=== PATIENT | female | born 1985 | race Two or more races ===

== ENCOUNTER 2022-06-08 11:00 | Inpatient (IN) | payer OTHER ==
[2022-06-08] MEDS ORDERED: SODIUM CHLORIDE 0.9% 500 ML INFUS.BAG IV ONE ×2 (13:37→21:29)
[2022-06-08] MEDS ORDERED: KETOROLAC TROMETHAMINE 30 MG/1 ML VIAL IVPUSH ONE ×2 (13:37→18:12)
[2022-06-08] MEDS ORDERED: KETOROLAC TROMETHAMINE 30 MG/1 ML VIAL ONE ×2 (13:40→18:14)
[2022-06-08 14:26] LABS: BASO % 0.4 % (0-2.0); EOS % 0.7 % (0-4.5); HEMATOCRIT 36.1 % (32.4-45.2); HEMOGLOBIN 11.4 GM/dL (10.7-15.3); LYMPH % 25.9 % (8-40); MCHC 31.7 g/dl (32.0-36.0); MEAN CELL VOLUME 72.4 fl (80-96); MEAN PLT VOLUME 9.7 fl (7.5-11.1); MONO % 7.9 % (3.8-10.2); NEUT % 65.1 % (42.8-82.8); PLATELET COUNT 187 10^3/uL (134-434); RBC 4.98 M/mm3 (3.60-5.2); RDW 15.9 % (11.6-15.6); WHITE BLOOD COUNT 8.2 K/mm3 (4.0-10.0)
[2022-06-08 14:30] LABS: EPI CELLS 9 /uL (0-25.1); HCG,QUALITATIVE URINE Negative; HYALINE CASTS 0 /uL (0-3.1); URINE APPEARANCE CLEAR; URINE BACTERIA 126 /uL (0-1359); URINE BILIRUBIN NEGATIVE (NEGATIVE); URINE COLOR YELLOW; URINE GLUCOSE (UA) NEGATIVE (NEGATIVE); URINE KETONE NEGATIVE (NEGATIVE); URINE LEUK ESTERASE NEGATIVE (NEGATIVE); URINE NITRITE NEGATIVE (NEGATIVE); URINE PROTEIN NEGATIVE (NEGATIVE); URINE RBC 8 /uL (0-23.9); URINE UROBILINOGEN 0.2 mg/dL (0.2-1.0); URINE WBC 4 /uL (0-25.8)
[2022-06-08 14:47] LABS: ALBUMIN 3.7 g/dl (3.4-5.0); BLOOD UREA NITROGEN 16.1 mg/dL (7-18); CALCIUM 9.3 mg/dL (8.5-10.1)
[2022-06-08 14:50] LABS: CREATININE 0.8 mg/dL (0.55-1.3)
[2022-06-08 14:52] LABS: BILIRUBIN,TOTAL 0.5 mg/dL (0.2-1); TOT PROT 7.1 g/dl (6.4-8.2)
[2022-06-08] MEDS ORDERED: ONDANSETRON 4 MG/2 ML VIAL IVPUSH ONE (21:28)
[2022-06-08] MEDS ORDERED: ONDANSETRON 4 MG/2 ML VIAL ONE (21:29)
[2022-06-08] MEDS ORDERED: morphine CARPU-JECT 4 MG/1 ML DISP.SYRIN IVPUSH ONE (23:00)
[2022-06-08] MEDS ORDERED: morphine SULFATE 4 MG/ML VIAL ONE (23:11)
[2022-06-09] MEDS ORDERED: PROCHLORPERAZINE INJECTION 10 MG/2 ML VIAL IVPB PRN (00:41)
[2022-06-09] MEDS ORDERED: SODIUM CHLORIDE 1,000 ML IV SCH ×2 (00:45→06:15)
[2022-06-09] MEDS ORDERED: ACETAMINOPHEN INJECTION 100 ML IVPB ONE (02:47)
[2022-06-09] MEDS: POLYETHYLENE GLYCOL (HEALTHYLAX) 3350 17 GM PACKET PO SCH ×3 (05:11→21:17)
[2022-06-09] MEDS ORDERED: PROCHLORPERAZINE INJECTION 10 MG/2 ML VIAL ONE (05:40)
[2022-06-09 07:12] LABS: ALBUMIN 3.4 g/dl (3.4-5.0); BASO % 0.1 % (0-2.0); BLOOD UREA NITROGEN 13.2 mg/dL (7-18); CALCIUM 8.1 mg/dL (8.5-10.1); HEMATOCRIT 36.5 % (32.4-45.2); HEMOGLOBIN 11.2 GM/dL (10.7-15.3); LYMPH % 8.8 % (8-40); MAGNESIUM 1.7 mg/dL (1.8-2.4); MCH 22.2 pg (25.7-33.7); MCHC 30.7 g/dl (32.0-36.0); MEAN CELL VOLUME 72.1 fl (80-96); MEAN PLT VOLUME 10.2 fl (7.5-11.1); MONO % 2.6 % (3.8-10.2); NEUT % 88.5 % (42.8-82.8); PLATELET COUNT 213 10^3/uL (134-434); RBC 5.06 M/mm3 (3.60-5.2); RDW 15.5 % (11.6-15.6); WHITE BLOOD COUNT 10.9 K/mm3 (4.0-10.0)
[2022-06-09 07:15] LABS: CREATININE 0.8 mg/dL (0.55-1.3)
[2022-06-09 07:16] LABS: PHOSPHOROUS 3.3 mg/dL (2.5-4.9)
[2022-06-09 07:17] LABS: BILIRUBIN,TOTAL 0.5 mg/dL (0.2-1); TOT PROT 6.7 g/dl (6.4-8.2)
[2022-06-09] MEDS ORDERED: MAGNESIUM OXIDE 400 MG TABLET (FP) PO ONE (09:51)
[2022-06-09] MEDS: CEFTRIAXONE 1 GM in DEXTROSE 5%-WATER - 50 ML IVPB SCH (10:17)
[2022-06-09] MEDS: ENOXAPARIN NA (PORCINE) 40 MG/0.4 ML DISP.SYRIN SQ SCH (10:19)
[2022-06-09] MEDS: SODIUM CHLORIDE 1,000 ML IV SCH ×2 (10:19→23:46)
[2022-06-09] MEDS: TAMSULOSIN HCL 0.4 MG CAP PO SCH (10:19)
[2022-06-09 13:19] VITALS: BMI 25.7
[2022-06-09] MEDS: LIDOCAINE 5% TOPICAL PATCH TP SCH (15:28)
[2022-06-09] MEDS: LIDOCAINE PATCH REMOVAL MC SCH (21:18)
[2022-06-10] MEDS: POLYETHYLENE GLYCOL (HEALTHYLAX) 3350 17 GM PACKET PO SCH ×4 (05:51→21:11)
[2022-06-10] MEDS: TAMSULOSIN HCL 0.4 MG CAP PO SCH (08:10)
[2022-06-10] MEDS: LIDOCAINE 5% TOPICAL PATCH TP SCH (09:51)
[2022-06-10] MEDS: SODIUM CHLORIDE 1,000 ML IV SCH ×2 (09:52→21:24)
[2022-06-10] MEDS: CEFTRIAXONE 1 GM in DEXTROSE 5%-WATER - 50 ML IVPB SCH (09:53)
[2022-06-10] MEDS: ENOXAPARIN NA (PORCINE) 40 MG/0.4 ML DISP.SYRIN SQ SCH (09:53)
[2022-06-10 11:20] LABS: BASO % 0.4 % (0-2.0); EOS % 0.1 % (0-4.5); HEMATOCRIT 32.6 % (32.4-45.2); HEMOGLOBIN 10.7 GM/dL (10.7-15.3); LYMPH % 15.3 % (8-40); MCH 23.5 pg (25.7-33.7); MCHC 32.7 g/dl (32.0-36.0); MEAN CELL VOLUME 71.7 fl (80-96); MEAN PLT VOLUME 9.9 fl (7.5-11.1); MONO % 7.1 % (3.8-10.2); NEUT % 77.1 % (42.8-82.8); PLATELET COUNT 192 10^3/uL (134-434); RBC 4.55 M/mm3 (3.60-5.2); RDW 15.3 % (11.6-15.6); WHITE BLOOD COUNT 9.7 K/mm3 (4.0-10.0)
[2022-06-10 11:42] LABS: CALCIUM 8.4 mg/dL (8.5-10.1)
[2022-06-10 11:43] LABS: ALBUMIN 3.4 g/dl (3.4-5.0); BLOOD UREA NITROGEN 11.2 mg/dL (7-18); MAGNESIUM 2.1 mg/dL (1.8-2.4)
[2022-06-10 11:47] LABS: BILIRUBIN,TOTAL 0.4 mg/dL (0.2-1); TOT PROT 6.9 g/dl (6.4-8.2)
[2022-06-10] MEDS: ACETAMINOPHEN 500 MG TABLET (FP) PO SCH ×2 (14:36→21:11)
[2022-06-10 15:10] VITALS: RESP 18
[2022-06-10 16:47] LABS: CALCIUM 8.4 mg/dL (8.5-10.1)
[2022-06-10 16:48] LABS: BLOOD UREA NITROGEN 11.1 mg/dL (7-18)
[2022-06-10 16:51] LABS: CREATININE 0.8 mg/dL (0.55-1.3)
[2022-06-10] MEDS: LIDOCAINE PATCH REMOVAL MC SCH (21:18)
[2022-06-11] MEDS: ACETAMINOPHEN 500 MG TABLET (FP) PO SCH ×4 (01:45→20:35)
[2022-06-11] MEDS: POLYETHYLENE GLYCOL (HEALTHYLAX) 3350 17 GM PACKET PO SCH ×3 (06:27→21:32)
[2022-06-11] MEDS: TAMSULOSIN HCL 0.4 MG CAP PO SCH ×2 (08:48→21:32)
[2022-06-11] MEDS ORDERED: BISACODYL 5 MG TABLET.DR (FP) PO ONE (09:23)
[2022-06-11] MEDS ORDERED: MAGNESIUM CITRATE 300 ML BOTTLE PO PRN (09:23)
[2022-06-11] MEDS: SODIUM CHLORIDE 1,000 ML IV SCH ×2 (09:53→18:41)
[2022-06-11] MEDS: ENOXAPARIN NA (PORCINE) 40 MG/0.4 ML DISP.SYRIN SQ SCH (10:03)
[2022-06-11] MEDS: CEFTRIAXONE 1 GM in DEXTROSE 5%-WATER - 50 ML IVPB SCH (10:03)
[2022-06-11] MEDS: LIDOCAINE 5% TOPICAL PATCH TP SCH (10:03)
[2022-06-11 10:20] LABS: BASO % 0.3 % (0-2.0); EOS % 0.9 % (0-4.5); HEMATOCRIT 29.7 % (32.4-45.2); HEMOGLOBIN 9.4 GM/dL (10.7-15.3); LYMPH % 32.1 % (8-40); MCH 22.6 pg (25.7-33.7); MCHC 31.7 g/dl (32.0-36.0); MEAN CELL VOLUME 71.5 fl (80-96); MEAN PLT VOLUME 10.3 fl (7.5-11.1); MONO % 11.4 % (3.8-10.2); NEUT % 55.3 % (42.8-82.8); PLATELET COUNT 186 10^3/uL (134-434); RBC 4.15 M/mm3 (3.60-5.2); RDW 15.4 % (11.6-15.6); WHITE BLOOD COUNT 6.2 K/mm3 (4.0-10.0)
[2022-06-11 11:00] LABS: BLOOD UREA NITROGEN 9.2 mg/dL (7-18); MAGNESIUM 1.9 mg/dL (1.8-2.4)
[2022-06-11 11:01] LABS: ALBUMIN 2.8 g/dl (3.4-5.0)
[2022-06-11 11:03] LABS: CREATININE 0.8 mg/dL (0.55-1.3)
[2022-06-11 11:05] LABS: TOT PROT 5.5 g/dl (6.4-8.2)
[2022-06-11 11:06] LABS: BILIRUBIN,TOTAL 0.4 mg/dL (0.2-1)
[2022-06-11] MEDS ORDERED: oxyCODONE HCL 5 MG TABLET PO PRN (13:48)
[2022-06-11] MEDS ORDERED: morphine SULFATE 4 MG/ML VIAL IVPUSH PRN (13:51)
[2022-06-11] MEDS ORDERED: GLYCERIN 1 RECTAL SUPPOSITORY, ADULT RC ONE (14:42)
[2022-06-11] MEDS: LIDOCAINE PATCH REMOVAL MC SCH (21:32)
[2022-06-11] MEDS ORDERED: DOCUSATE SODIUM 100 MG CAPSULE (FP) PO SCH (22:00)
[2022-06-12] MEDS: ACETAMINOPHEN 500 MG TABLET (FP) PO SCH ×2 (01:56→07:53)
[2022-06-12] MEDS: POLYETHYLENE GLYCOL (HEALTHYLAX) 3350 17 GM PACKET PO SCH ×2 (06:13→13:21)
[2022-06-12] MEDS: TAMSULOSIN HCL 0.4 MG CAP PO SCH (07:53)
[2022-06-12 08:56] VITALS: BP 115/69; PULSE 50; TEMP 98
[2022-06-12] MEDS: CEFTRIAXONE 1 GM in DEXTROSE 5%-WATER - 50 ML IVPB SCH (09:44)
[2022-06-12] MEDS: LIDOCAINE 5% TOPICAL PATCH TP SCH (09:44)
[2022-06-12] MEDS: ENOXAPARIN NA (PORCINE) 40 MG/0.4 ML DISP.SYRIN SQ SCH (09:44)
[2022-06-12] MEDS: SODIUM CHLORIDE 1,000 ML IV SCH (09:45)
[2022-06-12 11:09] LABS: BASO % 0.3 % (0-2.0); EOS % 0.9 % (0-4.5); HEMATOCRIT 33.3 % (32.4-45.2); HEMOGLOBIN 10.7 GM/dL (10.7-15.3); LYMPH % 30.4 % (8-40); MCH 23.2 pg (25.7-33.7); MCHC 32.1 g/dl (32.0-36.0); MEAN CELL VOLUME 72.3 fl (80-96); MEAN PLT VOLUME 9.5 fl (7.5-11.1); MONO % 9.1 % (3.8-10.2); NEUT % 59.3 % (42.8-82.8); PLATELET COUNT 204 10^3/uL (134-434); RDW 15.7 % (11.6-15.6); WHITE BLOOD COUNT 6.1 K/mm3 (4.0-10.0)
[2022-06-12 11:29] LABS: CALCIUM 9.1 mg/dL (8.5-10.1)
[2022-06-12 11:30] LABS: BLOOD UREA NITROGEN 6.4 mg/dL (7-18); MAGNESIUM 1.8 mg/dL (1.8-2.4)
[2022-06-12 11:33] LABS: CREATININE 0.8 mg/dL (0.55-1.3)
[2022-06-12 11:34] LABS: BILIRUBIN,TOTAL 0.3 mg/dL (0.2-1); TOT PROT 6.9 g/dl (6.4-8.2)
[2022-06-12 11:35] LABS: ALBUMIN 3.4 g/dl (3.4-5.0)
== END 2022-06-12 14:00 | disposition home or self-care (01) | DRG 465 ==
LOC: JER 11:00 → JERBED 23:08 → J6S 06-09 09:12 → OBSVTOIN 06-10 15:59
PROVIDERS: ADMIT Internal Medicine; ATTEND Nurse Practitioner Acute Care
DX: N13.2 Hydronephrosis with renal and ureteral calculous obstruction (principal); E87.5 Hyperkalemia; G43.909 Migraine, unspecified, not intractable, without status migrainosus; N80.9 Endometriosis, unspecified; R14.0 Abdominal distension (gaseous); R35.0 Frequency of micturition; K59.09 Other constipation; N83.202 Unspecified ovarian cyst, left side
CPT/HCPCS: 0241U-QW; 36415; 74176-TC; 74177-TC; 76775-TC; 76830-TC; 76856-TC; 80048; 80053; 81003; 83735; 84100; 84703; 85025; 87086; 93005; 93010; 99285-25; G0378; Q9967